=== PATIENT | female | born 1985 | race African-American/Black ===

== ENCOUNTER 2022-04-29 14:36 | Emergency (ER) | payer BC ==
[~2022-04-29] VITALS: Ht 172.7 cm; Wt 89.4 kg
[2022-04-29] MEDS ORDERED: KETOROLAC TROMETHAMINE 30 MG/ML VIAL IM STA (15:03)
[2022-04-29] MEDS ORDERED: METOCLOPRAMIDE HCL 10 MG/2ML VIAL IM ONE (16:00)
[2022-04-29] MEDS ORDERED: DIPHENHYDRAMINE HCL 25 MG CAP PO ONE (16:00)
[2022-04-29] MEDS ORDERED: DOXYCYCLINE HY100 MG PO (17:16)
[2022-04-29 17:23] VITALS: BP 127/78
== END 2022-04-29 17:22 | disposition home or self-care (01) ==
LOC: ER 14:41
DX: L03.114 Cellulitis of left upper limb (principal); I10 Essential (primary) hypertension; D64.9 Anemia, unspecified; N80.9 Endometriosis, unspecified; Z20.822 Contact with and (suspected) exposure to COVID-19
CPT/HCPCS: 99283; J1885; J2765; U0002